=== PATIENT | female | born 1975 | race African-American/Black ===

== ENCOUNTER 2019-08-06 20:08 | Inpatient (IN) | payer MEDICARE, MEDICAID ==
[~2019-08-06] VITALS: Ht 160 cm; Wt 58.8 kg
[2019-08-06 21:08] LABS: BASOPHILS % 0.9 % (0.0-2.0); HEMATOCRIT. 27.3 % (36.0-48.0); HEMOGLOBIN. 8.7 g/dL (12.0-16.0); LYMPHOCYTES % 7.6 % (20.0-50.0); MEAN CORPUSCULAR HEMOGLOBIN 32.9 pg (28.0-32.0); MEAN CORPUSCULAR VOLUME 102.8 fL (81.0-99.0); MEAN PLATELET VOLUME 8.9 fl (7.4-10.4); MONOCYTES % 8.7 % (2.0-8.0); NEUTROPHILS % 82.8 % (40.0-76.0); PLATELET 281 x1000/uL (130-400); RED BLOOD CELL COUNT 2.66 mill/uL (4.2-5.4); RED CELL DISTRIBUTION WIDTH 19.6 % (11.6-14.6)
[2019-08-06 21:12] LABS: CHLORIDE 99 mEq/L (98-107)
[2019-08-06 21:15] LABS: HCG SCREEN NEGATIVE
[2019-08-06] MEDS ORDERED: SODIUM BICARBONATE 8.4% 1 MEQ/ML 50ML SYR IV ONE (21:45)
[2019-08-06] MEDS ORDERED: DEXTROSE 50% WATER 50ML SYRINGE IV ONE (21:45)
[2019-08-06] MEDS ORDERED: CALCIUM GLUCONATE 1,000 MG in DEXT 5% WATER 100 ML IV ONE (21:45)
[2019-08-06] MEDS ORDERED: INSULIN REGULAR (HUMULIN R) 300UNITS/3ML IV ONE (21:45)
[2019-08-06] MEDS ORDERED: ALBUTEROL (0.083%) 2.5MG/3ML NEB HHN ONE (21:45)
[2019-08-07] VITALS (16 sets, daily range): BP systolic 105–134; BP diastolic 54–91
[2019-08-07] MEDS ORDERED: DEXTROSE 50% WATER 50ML SYRINGE IV ONE ×2 (00:09→00:15)
[2019-08-07] MEDS ORDERED: DEXTROSE 50% WATER 50ML SYRINGE IV PRN (06:15)
[2019-08-07] MEDS ORDERED: ENOXAPARIN 40MG/0.4ML SYR SUBCUT SCH (06:15)
[2019-08-07] MEDS ORDERED: IPRATROPIUM/ALBUTEROL 0.5-3(2.5)MG/3ML NEB HHN PRN (06:15)
[2019-08-07] MEDS ORDERED: LORAZEPAM 2MG/ML CPJ IV PRN (06:15)
[2019-08-07] MEDS ORDERED: GUAIFENESIN 200MG/10ML SUGAR FREE UDC PO PRN (06:15)
[2019-08-07] MEDS ORDERED: HYDROCODONE/ACETAMINOPHEN 10/325MG TABLET PO PRN (06:15)
[2019-08-07] MEDS ORDERED: MAGNESIUM/ALUMINUM HYDROXIDE/SIMETHICONE 30ML UDC PO PRN (06:15)
[2019-08-07] MEDS ORDERED: DIPHENHYDRAMINE 50MG/ML VIAL IV PRN (06:15)
[2019-08-07] MEDS ORDERED: ACETAMINOPHEN 325MG TABLET PO PRN (06:15)
[2019-08-07] MEDS ORDERED: HYDRALAZINE 20MG/ML VIAL IV PRN (06:15)
[2019-08-07] MEDS ORDERED: DOCUSATE SODIUM 100MG CAPSULE PO PRN (06:15)
[2019-08-07] MEDS ORDERED: CLONIDINE 0.1MG TABLET PO PRN (06:15)
[2019-08-07] MEDS ORDERED: DEXTROSE 50% WATER 50ML SYRINGE IV SCH (08:00)
[2019-08-07] MEDS ORDERED: INSULIN REGULAR (HUMULIN R) UD 100 UNITS/ML SYR IV SCH (08:00)
[2019-08-07] MEDS ORDERED: ENOXAPARIN 30MG/0.3ML SYR SUBCUT SCH (09:00)
[2019-08-07 10:19] LABS: CHLORIDE 97 mEq/L (98-107)
[2019-08-07 12:49] LABS: INR 3.9; PROTHROMBIN TIME 38.4 sec (9.6-11.0)
[2019-08-07 12:54] LABS: T4 FREE 0.88 ng/dL (0.76-1.46)
[2019-08-07] MEDS: SODIUM CHLORIDE 0.9% INJ 3ML FLUSH IVF SCH ×2 (14:00→22:11)
[2019-08-07 14:46] LABS: CREATINE KINASE 18 IU/L (26-192)
[2019-08-07 14:47] LABS: CREATINE KINASE MB FRACTION < 1.0 ng/mL (0.5-3.6)
[2019-08-07] MEDS: DILTIAZEM HCL 125 MG in DEXT 5% WATER 100 ML IV PRN (17:02)
[2019-08-08] VITALS (13 sets, daily range): BP systolic 73–137; BP diastolic 19–94
[2019-08-08 00:45] LABS: CREATINE KINASE MB FRACTION 2.9 ng/mL (0.5-3.6)
[2019-08-08] MEDS: SODIUM CHLORIDE 0.9% INJ 3ML FLUSH IVF SCH ×3 (05:34→22:11)
[2019-08-08 06:44] LABS: PROTHROMBIN TIME 56.2 sec (9.6-11.0)
[2019-08-08 06:55] LABS: EOSINOPHILS % 0.2 % (0.0-5.0); HEMATOCRIT. 26.7 % (36.0-48.0); HEMOGLOBIN. 8.6 g/dL (12.0-16.0); LYMPHOCYTES % 10.7 % (20.0-50.0); MEAN CORPUSCULAR HEMOGLOBIN 32.9 pg (28.0-32.0); MEAN CORPUSCULAR VOLUME 102.5 fL (81.0-99.0); MEAN PLATELET VOLUME 9.2 fl (7.4-10.4); MONOCYTES % 10.7 % (2.0-8.0); NEUTROPHILS % 77.4 % (40.0-76.0); PLATELET 277 x1000/uL (130-400); RED BLOOD CELL COUNT 2.61 mill/uL (4.2-5.4); RED CELL DISTRIBUTION WIDTH 20.2 % (11.6-14.6)
[2019-08-08 06:57] LABS: INR 5.9
[2019-08-08 09:41] LABS: BASOPHILS % 0.3 % (0.0-2.0); EOSINOPHILS % 0.2 % (0.0-5.0); HEMATOCRIT. 28.3 % (36.0-48.0); HEMOGLOBIN. 9.1 g/dL (12.0-16.0); LYMPHOCYTES % 9.3 % (20.0-50.0); MEAN CORPUSCULAR HEMOGLOBIN 32.4 pg (28.0-32.0); MEAN CORPUSCULAR VOLUME 100.5 fL (81.0-99.0); MEAN PLATELET VOLUME 8.7 fl (7.4-10.4); MONOCYTES % 10.4 % (2.0-8.0); NEUTROPHILS % 79.8 % (40.0-76.0); PLATELET 293 x1000/uL (130-400); RED BLOOD CELL COUNT 2.81 mill/uL (4.2-5.4); RED CELL DISTRIBUTION WIDTH 19.6 % (11.6-14.6)
[2019-08-08] MEDS ORDERED: VANCOMYCIN 1 G PREMIX 200 ML IV SCH (20:00)
[2019-08-08] MEDS ORDERED: EPOETIN ALFA 10000UNITS/ML VIAL SUBCUT SCH (21:00)
[2019-08-08] MEDS ORDERED: GENTAMICIN 120MG PREMIX 100 ML IV NR (21:00)
[2019-08-08] MEDS: METOPROLOL TARTRATE 50MG TABLET PO SCH (21:11)
[2019-08-09] VITALS (12 sets, daily range): BP systolic 100–132; BP diastolic 58–99
[2019-08-09] MEDS ORDERED: GENTAMICIN 120MG PREMIX 100 ML IV SCH (05:00)
[2019-08-09] MEDS: SODIUM CHLORIDE 0.9% INJ 3ML FLUSH IVF SCH (06:19)
[2019-08-09 07:42] LABS: INR 3.7; PROTHROMBIN TIME 36.3 sec (9.6-11.0)
[2019-08-09 07:56] LABS: BASOPHILS % 1.1 % (0.0-2.0); EOSINOPHILS % 0.8 % (0.0-5.0); HEMATOCRIT. 27.1 % (36.0-48.0); HEMOGLOBIN. 8.9 g/dL (12.0-16.0); LYMPHOCYTES % 10.8 % (20.0-50.0); MEAN CORPUSCULAR HEMOGLOBIN 33.2 pg (28.0-32.0); MEAN CORPUSCULAR VOLUME 101.6 fL (81.0-99.0); MEAN PLATELET VOLUME 9.1 fl (7.4-10.4); MONOCYTES % 10.5 % (2.0-8.0); NEUTROPHILS % 76.8 % (40.0-76.0); PLATELET 282 x1000/uL (130-400); RED BLOOD CELL COUNT 2.67 mill/uL (4.2-5.4); RED CELL DISTRIBUTION WIDTH 19.4 % (11.6-14.6)
[2019-08-09] MEDS: METOPROLOL TARTRATE 50MG TABLET PO SCH ×2 (10:11→20:38)
[2019-08-09] MEDS ORDERED: DIGOXIN 500MCG/2ML AMP IV NR (11:30)
[2019-08-09] MEDS ORDERED: CEFTRIAXONE 2 G PREMIX 50 ML IV SCH (14:45)
[2019-08-09] MEDS: CEFTRIAXONE 2 G in DEXTROSE 5% WATER 50 ML IV SCH (16:11)
[2019-08-09] MEDS: MORPHINE SULFATE 2 MG/ML CPJ (NOT FOR IM USE) IV PRN (16:13)
[2019-08-09 17:25] LABS: HEPATITIS B SURFACE ANTIGEN NEGATIVE
[2019-08-09 17:54] LABS: HEPATITIS A AB IGM NEGATIVE (NEGATIVE)
[2019-08-09] MEDS ORDERED: WARFARIN SODIUM 2MG TABLET PO SCH (18:00)
[2019-08-10] VITALS (12 sets, daily range): BP systolic 118–138; BP diastolic 55–86
[2019-08-10 07:18] LABS: INR 3.5; PROTHROMBIN TIME 34.2 sec (9.6-11.0)
[2019-08-10 07:23] LABS: BASOPHILS % 1.1 % (0.0-2.0); EOSINOPHILS % 0.6 % (0.0-5.0); HEMATOCRIT. 30.2 % (36.0-48.0); HEMOGLOBIN. 9.8 g/dL (12.0-16.0); LYMPHOCYTES % 11.3 % (20.0-50.0); MEAN CORPUSCULAR HEMOGLOBIN 33.2 pg (28.0-32.0); MEAN CORPUSCULAR VOLUME 102.5 fL (81.0-99.0); MEAN PLATELET VOLUME 9.3 fl (7.4-10.4); MONOCYTES % 11.3 % (2.0-8.0); NEUTROPHILS % 75.7 % (40.0-76.0); PLATELET 323 x1000/uL (130-400); RED BLOOD CELL COUNT 2.94 mill/uL (4.2-5.4); RED CELL DISTRIBUTION WIDTH 20.3 % (11.6-14.6)
[2019-08-10] MEDS ORDERED: DILTIAZEM HCL 125 MG in DEXT 5% WATER 100 ML IV ONE (09:00)
[2019-08-10] MEDS: METOPROLOL TARTRATE 50MG TABLET PO SCH ×2 (09:00→20:26)
[2019-08-10] MEDS: DILTIAZEM HCL 125 MG in DEXT 5% WATER 100 ML IV PRN (14:53)
[2019-08-10] MEDS ORDERED: VANCOMYCIN 750 MG PREMIX 150 ML IV NR (16:00)
[2019-08-10] MEDS: CEFTRIAXONE 2 G in DEXTROSE 5% WATER 50 ML IV SCH (16:14)
[2019-08-10] MEDS: ALLOPURINOL 300 MG TABLET PO SCH (20:11)
[2019-08-10] MEDS ORDERED: ASCORBIC ACID 500 MG TABLET PO SCH (21:00)
[2019-08-10] MEDS ORDERED: DOCUSATE SODIUM 100MG CAPSULE PO SCH (21:00)
[2019-08-10] MEDS ORDERED: CHLORHEXIDINE GLUCONATE 4% EXTERNAL USE TOP SCH (21:00)
[2019-08-10] MEDS: EPOETIN ALFA 10000UNITS/ML VIAL SUBCUT SCH (21:34)
[2019-08-10] MEDS: MORPHINE SULFATE 2 MG/ML CPJ (NOT FOR IM USE) IV PRN (23:25)
[2019-08-11] VITALS (12 sets, daily range): BP systolic 95–136; BP diastolic 37–89
[2019-08-11] MEDS: CHLORHEXIDINE GLUCONATE 4% EXTERNAL USE TOP SCH ×2 (05:00→08:29)
[2019-08-11] MEDS: ALLOPURINOL 300 MG TABLET PO SCH (05:30)
[2019-08-11 07:19] LABS: BASOPHILS % 1.1 % (0.0-2.0); EOSINOPHILS % 2.7 % (0.0-5.0); HEMATOCRIT. 32.1 % (36.0-48.0); HEMOGLOBIN. 10.5 g/dL (12.0-16.0); LYMPHOCYTES % 11.9 % (20.0-50.0); MEAN CORPUSCULAR VOLUME 104.4 fL (81.0-99.0); MEAN PLATELET VOLUME 8.9 fl (7.4-10.4); MONOCYTES % 13.7 % (2.0-8.0); NEUTROPHILS % 70.6 % (40.0-76.0); PLATELET 324 x1000/uL (130-400); RED BLOOD CELL COUNT 3.08 mill/uL (4.2-5.4); RED CELL DISTRIBUTION WIDTH 20.2 % (11.6-14.6)
[2019-08-11 07:28] LABS: PROTHROMBIN TIME 20.3 sec (9.6-11.0)
[2019-08-11 08:08] LABS: HIV SCREEN 4G Non Reactive (Non Reactive)
[2019-08-11] MEDS: METOPROLOL TARTRATE 50MG TABLET PO SCH ×2 (09:00→21:00)
[2019-08-11] MEDS: DILTIAZEM HCL 125 MG in DEXT 5% WATER 100 ML IV PRN (13:02)
[2019-08-11] MEDS: CEFTRIAXONE 2 G in DEXTROSE 5% WATER 50 ML IV SCH (16:13)
[2019-08-12] VITALS (12 sets, daily range): BP systolic 96–126; BP diastolic 27–70
[2019-08-12 06:10] LABS: BASOPHILS % 0.9 % (0.0-2.0); EOSINOPHILS % 4.1 % (0.0-5.0); HEMATOCRIT. 32.1 % (36.0-48.0); HEMOGLOBIN. 10.3 g/dL (12.0-16.0); LYMPHOCYTES % 7.1 % (20.0-50.0); MEAN CORPUSCULAR HEMOGLOBIN 33.4 pg (28.0-32.0); MEAN CORPUSCULAR VOLUME 103.9 fL (81.0-99.0); MEAN PLATELET VOLUME 8.7 fl (7.4-10.4); NEUTROPHILS % 75.9 % (40.0-76.0); PLATELET 290 x1000/uL (130-400); RED BLOOD CELL COUNT 3.09 mill/uL (4.2-5.4); RED CELL DISTRIBUTION WIDTH 20.2 % (11.6-14.6)
[2019-08-12] MEDS: METOPROLOL TARTRATE 50MG TABLET PO SCH ×2 (09:00→21:00)
[2019-08-12] MEDS: DILTIAZEM HCL 125 MG in DEXT 5% WATER 100 ML IV PRN (15:10)
[2019-08-12] MEDS: CEFTRIAXONE 2 G in DEXTROSE 5% WATER 50 ML IV SCH (15:10)
[2019-08-12] MEDS ORDERED: IBUPROFEN 200MG TABLET PO PRN (23:15)
[2019-08-12] MEDS: IBUPROFEN 600MG TABLET PO PRN (23:35)
[2019-08-13] VITALS (18 sets, daily range): BP systolic 93–132; BP diastolic 17–68
[2019-08-13 05:51] LABS: BASOPHILS % 0.9 % (0.0-2.0); EOSINOPHILS % 5.9 % (0.0-5.0); HEMATOCRIT. 28.9 % (36.0-48.0); HEMOGLOBIN. 9.1 g/dL (12.0-16.0); INR 1.3; LYMPHOCYTES % 14.2 % (20.0-50.0); MEAN CORPUSCULAR HEMOGLOBIN 34.2 pg (28.0-32.0); MEAN CORPUSCULAR VOLUME 108.5 fL (81.0-99.0); MEAN PLATELET VOLUME 8.6 fl (7.4-10.4); MONOCYTES % 14.6 % (2.0-8.0); NEUTROPHILS % 64.4 % (40.0-76.0); PLATELET 259 x1000/uL (130-400); PROTHROMBIN TIME 13.3 sec (9.6-11.0); RED BLOOD CELL COUNT 2.67 mill/uL (4.2-5.4); RED CELL DISTRIBUTION WIDTH 20.9 % (11.6-14.6)
[2019-08-13] MEDS: METOPROLOL TARTRATE 50MG TABLET PO SCH ×2 (09:00→21:00)
[2019-08-13] MEDS ORDERED: MAGNESIUM 2 G PREMIX 50 ML IV NR (10:00)
[2019-08-13] MEDS ORDERED: IOHEXOL-350 100 ML BOTTLE ONE (10:24)
[2019-08-13] MEDS: HEPARIN 5000 UNITS/ML VIAL IV SCH ×2 (13:36→21:53)
[2019-08-13 15:58] LABS: HEMATOCRIT 37.6 % (36.0-48.0); HEMOGLOBIN 12.1 g/dL (12.0-16.0)
[2019-08-13 16:05] LABS: INR 1.2; PROTHROMBIN TIME 12.5 sec (9.6-11.0)
[2019-08-13] MEDS: CEFTRIAXONE 2 G in DEXTROSE 5% WATER 50 ML IV SCH (16:49)
[2019-08-13] MEDS: IBUPROFEN 600MG TABLET PO PRN (21:46)
[2019-08-13] MEDS: EPOETIN ALFA 10000UNITS/ML VIAL SUBCUT SCH (21:47)
[2019-08-13] MEDS ORDERED: CHLORHEXIDINE GLUCONATE 4% EXTERNAL USE TOP NR (22:00)
[2019-08-14] VITALS (59 sets, daily range): BP systolic 0–140; BP diastolic 0–72
[2019-08-14] MEDS ORDERED: CHLORHEXIDINE GLUCONATE 4% EXTERNAL USE TOP NR (05:00)
[2019-08-14] MEDS ORDERED: BACITRACIN 15GM TUBE TOP ONE (05:46)
[2019-08-14] MEDS ORDERED: THROMBIN (BOVINE) 5000 UNITS/VIAL TOP ONE ×2 (05:47→08:14)
[2019-08-14] MEDS ORDERED: BACITRACIN 50,000 UNITS/VIAL ONE (05:47)
[2019-08-14] MEDS ORDERED: SEVOFLURANE 250 ML LIQUID INH ONE (05:48)
[2019-08-14] MEDS ORDERED: NITROGLYCERIN 50MG PREMIX 250 ML IV ONE (05:48)
[2019-08-14] MEDS ORDERED: HEPARIN 1000 UNITS/ML 10ML ONE ×3 (05:54→06:54)
[2019-08-14] MEDS ORDERED: NICARDIPINE 40MG/200ML PREMIX 200 ML IV PRN (06:00)
[2019-08-14] MEDS ORDERED: DEL NIDO ELECTROLYTE-S(PH 7.4) 1,000 ML IV PRN ×2 (06:00)
[2019-08-14] MEDS ORDERED: DOBUTAMINE 250MG PREMIX 250 ML IV PRN (06:00)
[2019-08-14] MEDS ORDERED: CEFAZOLIN 2,000 MG in DEXT 5% WATER 100 ML IV PRN (06:00)
[2019-08-14] MEDS ORDERED: AMINOCAPROIC ACID 10,000 MG in SODIUM CHLORIDE 0.9% 460 ML IV PRN (06:00)
[2019-08-14] MEDS ORDERED: NOREPINEPHRINE 4 MG in DEXT 5% WATER 246 ML IV PRN (06:00)
[2019-08-14] MEDS ORDERED: INSULIN REGULAR (DRIP) 100 UNITS in SODIUM CHLORIDE 0.9% 99 ML IV PRN (06:00)
[2019-08-14] MEDS ORDERED: PHENYLEPHRINE 10 MG in DEXT 5% WATER 249 ML IV PRN (06:00)
[2019-08-14] MEDS ORDERED: EPINEPHRINE 4 MG in DEXT 5% WATER 246 ML IV PRN (06:00)
[2019-08-14] MEDS ORDERED: DOPAMINE 400MG/250ML PREMIX 250 ML IV ONE (06:08)
[2019-08-14 06:26] LABS: BASOPHILS % 1.3 % (0.0-2.0); EOSINOPHILS % 5.1 % (0.0-5.0); HEMATOCRIT. 35.7 % (36.0-48.0); HEMOGLOBIN. 11.7 g/dL (12.0-16.0); LYMPHOCYTES % 12.3 % (20.0-50.0); MEAN CORPUSCULAR HEMOGLOBIN 33.6 pg (28.0-32.0); MEAN CORPUSCULAR VOLUME 102.8 fL (81.0-99.0); MEAN PLATELET VOLUME 8.8 fl (7.4-10.4); MONOCYTES % 10.7 % (2.0-8.0); NEUTROPHILS % 70.6 % (40.0-76.0); PLATELET 243 x1000/uL (130-400); RED BLOOD CELL COUNT 3.48 mill/uL (4.2-5.4); RED CELL DISTRIBUTION WIDTH 20.3 % (11.6-14.6)
[2019-08-14] MEDS ORDERED: ETOMIDATE 2MG/ML 10ML VIAL IV ONE (06:44)
[2019-08-14] MEDS ORDERED: FENTANYL CITRATE/PF 50MCG/ML 5ML VIAL ONE (06:44)
[2019-08-14] MEDS ORDERED: MIDAZOLAM HCL 2 MG/2 ML VIAL ONE (06:44)
[2019-08-14] MEDS ORDERED: ROCURONIUM BROMIDE 10MG/ML VIAL 5ML IV ONE ×2 (06:44→09:35)
[2019-08-14] MEDS ORDERED: PROPOFOL 10MG/ML 100ML 100 ML IV ONE (06:45)
[2019-08-14] MEDS ORDERED: PHENYLEPHRINE HCL 10 MG/ML 1ML (IV VIAL) IV ONE ×2 (06:49→06:52)
[2019-08-14] MEDS ORDERED: AMINOCAPROIC ACID 250 MG/ML 20ML VIAL ONE (06:52)
[2019-08-14] MEDS ORDERED: MAGNESIUM SULFATE 5GM/10ML VIAL IV ONE (06:52)
[2019-08-14] MEDS ORDERED: ALBUMIN HUMAN 25GM/100ML (25%) IV ONE (06:52)
[2019-08-14] MEDS ORDERED: MANNITOL 20% 500 ML IV ONE (06:52)
[2019-08-14] MEDS ORDERED: CALCIUM CHLORIDE 1GM/10ML SYR IV ONE (06:52)
[2019-08-14] MEDS ORDERED: HEPARIN 10,000 UNITS/ML VIAL ONE (06:53)
[2019-08-14] MEDS ORDERED: SODIUM BICARBONATE 8.4% 1 MEQ/ML 50ML SYR IV ONE ×2 (06:53→06:54)
[2019-08-14] MEDS ORDERED: VANCOMYCIN HCL 500 MG/VIAL ONE (07:44)
[2019-08-14] MEDS ORDERED: METOPROLOL TARTRATE 5MG/5ML VIAL IV ONE (08:03)
[2019-08-14] MEDS ORDERED: EPINEPHRINE 0.1MG/ML (1:10,000) 10ML SYR ONE (08:35)
[2019-08-14 10:08] LABS: B HENSELAE IGG Negative titer (Neg:<1:320); B HENSELAE IGM Negative titer (Neg:<1:100); B QUINTANA IGG Negative titer (Neg:<1:320); B QUINTANA IGM Negative titer (Neg:<1:100)
[2019-08-14] MEDS ORDERED: DEXMEDETOMIDINE 400 MCG/100 ML 100 ML IV SCH (10:45)
[2019-08-14] MEDS ORDERED: PROTAMINE SULFATE 10MG/ML VIAL 25ML IV ONE (10:46)
[2019-08-14] MEDS ORDERED: DESMOPRESSIN ACETATE 4MCG/ML AMP ONE (11:13)
[2019-08-14] MEDS ORDERED: NEOSTIGMINE METHYLSULFATE 1MG/ML 10 ML VIAL ONE (11:21)
[2019-08-14] MEDS ORDERED: DESMOPRESSIN ACETATE 18 MCG in SODIUM CHLORIDE 0.9% 50 ML IV SCH (11:30)
[2019-08-14] MEDS ORDERED: ONDANSETRON HCL 4MG/2ML INJ ONE (11:40)
[2019-08-14] MEDS ORDERED: VANCOMYCIN 750 MG PREMIX 150 ML IV NR (12:00)
[2019-08-14] MEDS ORDERED: KETOROLAC 30MG/ML VIAL ONE (12:09)
[2019-08-14] MEDS ORDERED: KETOROLAC 15MG/ML VIAL IV NR ×2 (12:30)
[2019-08-14] MEDS ORDERED: SODIUM CHLORIDE 0.9% 500 ML IV PRN (12:31)
[2019-08-14 12:34] LABS: BG BASE EXCESS -1.7 mmol/L (-2.0-2.0); BG CARBOXYHEMOGLOBIN 1.4 % (0.5-1.5); BG CPAP (cmH2O) 0 cm(H2O); BG DEOXYHEMOGLOBIN 4.2 % (0.0-5.0); BG HCO3 ACT 22.7 mmol/L (22.0-26.0); BG METHEMOGLOBIN 0.1 % (0.0-1.5); BG OXYGEN SATURATION 95.7 % (92.0-98.5); BG OXYHEMOGLOBIN 94.3 % (94.0-97.0); BG PCO2 37.1 mmHg (35.0-45.0); BG PH 7.404 (7.350-7.450); BG PO2 93.2 mmHg (75.0-100.0); BG PRESSURE SUPPORT 14; BG SAMPLE SITE A-LINE; BG TOTAL HEMOGLOBIN 11.2 g/dL (12.0-18.0); BG VENT MODE VENT - CPAP
[2019-08-14] MEDS ORDERED: MAGNESIUM 1 G PREMIX 100 ML IV PRN (12:45)
[2019-08-14] MEDS ORDERED: MAGNESIUM 2 G PREMIX 50 ML IV PRN (12:45)
[2019-08-14] MEDS ORDERED: MAGNESIUM SULFATE 3 GM in DEXT 5% WATER 100 ML IV PRN (13:00)
[2019-08-14 13:09] LABS: HEMATOCRIT. 27.2 % (36.0-48.0); MEAN CORPUSCULAR HEMOGLOBIN 33.9 pg (28.0-32.0); MEAN CORPUSCULAR VOLUME 101.7 fL (81.0-99.0); MEAN PLATELET VOLUME 7.6 fl (7.4-10.4); PLATELET 127 x1000/uL (130-400); RED BLOOD CELL COUNT 2.67 mill/uL (4.2-5.4); RED CELL DISTRIBUTION WIDTH 20.6 % (11.6-14.6)
[2019-08-14 13:11] LABS: BRUCELLA AB IGG EIA Negative (Negative); BRUCELLA AB IGM EIA Negative (Negative)
[2019-08-14 13:11] LABS: BG BASE EXCESS 1.1 mmol/L (-2.0-2.0); BG DEOXYHEMOGLOBIN 3.2 % (0.0-5.0); BG HCO3 ACT 26.9 mmol/L (22.0-26.0); BG METHEMOGLOBIN 0.3 % (0.0-1.5); BG OXYGEN SATURATION 96.8 % (92.0-98.5); BG OXYHEMOGLOBIN 95.5 % (94.0-97.0); BG PCO2 48.7 mmHg (35.0-45.0); BG SAMPLE SITE A-LINE; BG TOTAL HEMOGLOBIN 9.8 g/dL (12.0-18.0); BG VENT MODE NASAL CANNULA
[2019-08-14] MEDS: DOPAMINE 400MG/250ML PREMIX 250 ML IV SCH (13:14)
[2019-08-14] MEDS ORDERED: EPINEPHRINE 1 MG in DEXT 5% WATER 249 ML IV SCH (13:30)
[2019-08-14 13:34] LABS: PLATELET ESTIMATE SLIGHTLY DECREASED
[2019-08-14] MEDS ORDERED: ALBUMIN HUMAN 25GM/100ML (25%) IV SCH (13:45)
[2019-08-14 13:51] LABS: INR 1.3; PARTIAL THROMBOPLASTIN TIME 31.2 sec (23.4-31.0); PROTHROMBIN TIME 13.2 sec (9.6-11.0)
[2019-08-14] MEDS: KETOROLAC 15MG/ML VIAL IV PRN ×2 (13:51→19:56)
[2019-08-14] MEDS ORDERED: PROTAMINE SULFATE 10MG/ML VIAL 5ML IV NR (15:15)
[2019-08-14] MEDS: IPRATROPIUM/ALBUTEROL 0.5-3(2.5)MG/3ML NEB HHN SCH ×3 (16:10→23:57)
[2019-08-14] MEDS ORDERED: LIDOCAINE HCL 1% 20ML VIAL (Pyxis) INJ INFIL NR (16:49)
[2019-08-14] MEDS ORDERED: LIDOCAINE HCL/PF 1% 10 MG/ML 5ML VIAL ONE (17:01)
[2019-08-14] MEDS: CEFTRIAXONE 2 G in DEXTROSE 5% WATER 50 ML IV SCH (17:27)
[2019-08-14] MEDS: DOCUSATE SODIUM 100MG CAPSULE PO SCH (17:28)
[2019-08-14] MEDS ORDERED: LIDOCAINE HCL/PF 1% 2ML VIAL INFIL NR (17:28)
[2019-08-14] MEDS ORDERED: DEXT 5%/0.45% NACL 1000ML 1,000 ML IV SCH (17:30)
[2019-08-14] MEDS ORDERED: LIDOCAINE HCL/PF 1% 10 MG/ML 5ML VIAL IJ NR (18:04)
[2019-08-14 18:35] LABS: HEMATOCRIT. 26.6 % (36.0-48.0); HEMOGLOBIN. 8.6 g/dL (12.0-16.0); MEAN CORPUSCULAR HEMOGLOBIN 32.4 pg (28.0-32.0); MEAN PLATELET VOLUME 8.9 fl (7.4-10.4); PLATELET 145 x1000/uL (130-400); RED BLOOD CELL COUNT 2.66 mill/uL (4.2-5.4); RED CELL DISTRIBUTION WIDTH 21.1 % (11.6-14.6)
[2019-08-14 18:43] LABS: CHLORIDE 101 mEq/L (98-107)
[2019-08-14 18:49] LABS: PHOSPHORUS 5.7 mg/dL (2.5-4.9)
[2019-08-14 19:53] LABS: PLATELET ESTIMATE NORMAL
[2019-08-14] MEDS ORDERED: WARFARIN SODIUM 1MG TABLET PO NR (21:00)
[2019-08-14] MEDS: METOPROLOL TARTRATE 50MG TABLET PO SCH (21:00)
[2019-08-14] MEDS: MORPHINE SULFATE 2 MG/ML CPJ (NOT FOR IM USE) IV PRN (22:06)
[2019-08-15] VITALS (106 sets, daily range): BP systolic 0–147; BP diastolic 0–74
[2019-08-15] MEDS: MORPHINE SULFATE 2 MG/ML CPJ (NOT FOR IM USE) IV PRN ×2 (01:45→06:26)
[2019-08-15] MEDS: IPRATROPIUM/ALBUTEROL 0.5-3(2.5)MG/3ML NEB HHN SCH ×6 (04:11→19:48)
[2019-08-15] MEDS: KETOROLAC 15MG/ML VIAL IV PRN ×2 (04:47→10:51)
[2019-08-15 06:20] LABS: HEMATOCRIT. 27.2 % (36.0-48.0); HEMOGLOBIN. 9.4 g/dL (12.0-16.0); MEAN CORPUSCULAR VOLUME 97.8 fL (81.0-99.0); MEAN PLATELET VOLUME 9.1 fl (7.4-10.4); PLATELET 105 x1000/uL (130-400); RED BLOOD CELL COUNT 2.78 mill/uL (4.2-5.4); RED CELL DISTRIBUTION WIDTH 20.1 % (11.6-14.6)
[2019-08-15 06:33] LABS: INR 1.2; PROTHROMBIN TIME 12.2 sec (9.6-11.0)
[2019-08-15 08:26] LABS: BG BASE EXCESS -1.3 mmol/L (-2.0-2.0); BG DEOXYHEMOGLOBIN 9.7 % (0.0-5.0); BG FRACTION INSPIRED OXYGEN 36; BG HCO3 ACT 23.7 mmol/L (22.0-26.0); BG METHEMOGLOBIN 0.2 % (0.0-1.5); BG OXYHEMOGLOBIN 87.1 % (94.0-97.0); BG PCO2 40.7 mmHg (35.0-45.0); BG PH 7.383 (7.350-7.450); BG PO2 62.9 mmHg (75.0-100.0); BG SAMPLE SITE A-LINE; BG TOTAL HEMOGLOBIN 9.7 g/dL (12.0-18.0); BG VENT MODE NASAL CANNULA
[2019-08-15] MEDS: METOPROLOL TARTRATE 50MG TABLET PO SCH (08:36)
[2019-08-15] MEDS: DOCUSATE SODIUM 100MG CAPSULE PO SCH ×2 (08:36→17:44)
[2019-08-15 08:44] LABS: PLATELET ESTIMATE DECREASED
[2019-08-15] MEDS ORDERED: INSULIN REGULAR (DRIP) 100 UNITS in SODIUM CHLORIDE 0.9% 99 ML IV PRN (09:00)
[2019-08-15] MEDS: BLOOD SUGAR DIAGNOSTIC STRIP TEST SCH ×7 (09:00→21:13)
[2019-08-15] MEDS ORDERED: DEXTROSE 50% WATER 50ML SYRINGE IV PRN ×3 (09:15→15:15)
[2019-08-15 12:26] LABS: BASOPHILS % 1.1 % (0.0-2.0); EOSINOPHILS % 3.4 % (0.0-5.0); HEMATOCRIT. 26.5 % (36.0-48.0); HEMOGLOBIN. 8.9 g/dL (12.0-16.0); LYMPHOCYTES % 7.4 % (20.0-50.0); MEAN CORPUSCULAR HEMOGLOBIN 32.9 pg (28.0-32.0); MEAN CORPUSCULAR VOLUME 98.3 fL (81.0-99.0); MEAN PLATELET VOLUME 8.3 fl (7.4-10.4); MONOCYTES % 11.1 % (2.0-8.0); PLATELET 91 x1000/uL (130-400); RED BLOOD CELL COUNT 2.69 mill/uL (4.2-5.4); RED CELL DISTRIBUTION WIDTH 19.5 % (11.6-14.6)
[2019-08-15] MEDS: ONDANSETRON HCL 4MG/2ML INJ IV PRN (12:59)
[2019-08-15] MEDS: OXYCODONE HCL/ACETAMINOPHEN 5/325MG TABLET PO PRN ×3 (13:23→23:09)
[2019-08-15] MEDS: DOPAMINE 400MG/250ML PREMIX 250 ML IV SCH (15:18)
[2019-08-15] MEDS: CEFTRIAXONE 2 G in DEXTROSE 5% WATER 50 ML IV SCH (17:11)
[2019-08-15] MEDS: INSULIN LISPRO 100 UNITS/ML SUBCUT SCH ×2 (17:44→21:00)
[2019-08-15] MEDS ORDERED: WARFARIN SODIUM 1MG TABLET PO NR (21:00)
[2019-08-15] MEDS: EPOETIN ALFA 10000UNITS/ML VIAL SUBCUT SCH (21:27)
[2019-08-16] VITALS (50 sets, daily range): BP systolic 82–131; BP diastolic 42–87
[2019-08-16] MEDS: IPRATROPIUM/ALBUTEROL 0.5-3(2.5)MG/3ML NEB HHN SCH ×6 (04:11→20:11)
[2019-08-16 06:27] LABS: HEMATOCRIT. 30.7 % (36.0-48.0); HEMOGLOBIN. 10.3 g/dL (12.0-16.0); MEAN CORPUSCULAR HEMOGLOBIN 32.3 pg (28.0-32.0); MEAN CORPUSCULAR VOLUME 96.6 fL (81.0-99.0); MEAN PLATELET VOLUME 9.6 fl (7.4-10.4); PLATELET 78 x1000/uL (130-400); RED BLOOD CELL COUNT 3.18 mill/uL (4.2-5.4); RED CELL DISTRIBUTION WIDTH 18.2 % (11.6-14.6)
[2019-08-16 07:21] LABS: INR 1.2; PARTIAL THROMBOPLASTIN TIME 38.7 sec (23.4-31.0)
[2019-08-16] MEDS: INSULIN LISPRO 100 UNITS/ML SUBCUT SCH ×3 (07:47→21:00)
[2019-08-16] MEDS: BLOOD SUGAR DIAGNOSTIC STRIP TEST SCH ×4 (07:47→21:26)
[2019-08-16] MEDS: DOCUSATE SODIUM 100MG CAPSULE PO SCH ×2 (08:04→18:11)
[2019-08-16] MEDS: OXYCODONE HCL/ACETAMINOPHEN 5/325MG TABLET PO PRN ×3 (08:04→18:08)
[2019-08-16 08:18] LABS: NUCLEATED RED BLOOD CELLS 1 /100 WBC; PLATELET ESTIMATE DECREASED
[2019-08-16] MEDS ORDERED: CALCIUM CHLORIDE 3,000 MG in DEXT 5% WATER 250 ML IV NR (08:30)
[2019-08-16] MEDS: ASPIRIN 81MG TABLET PO SCH (12:36)
[2019-08-16] MEDS: FAMOTIDINE 20MG TABLET PO SCH (12:36)
[2019-08-16] MEDS: SODIUM CHLORIDE 0.9% INJ 3ML FLUSH IVF SCH ×2 (12:37→21:26)
[2019-08-16] MEDS: CEFTRIAXONE 2 G in DEXTROSE 5% WATER 50 ML IV SCH (14:59)
[2019-08-16] MEDS ORDERED: VANCOMYCIN 1 G PREMIX 200 ML IV SCH (16:00)
[2019-08-16] MEDS ORDERED: WARFARIN SODIUM 2MG TABLET PO NR (18:00)
[2019-08-16] MEDS: METOPROLOL TARTRATE 25MG TABLET PO SCH (21:25)
[2019-08-17] VITALS (14 sets, daily range): BP systolic 108–145; BP diastolic 52–76
[2019-08-17] MEDS: IPRATROPIUM/ALBUTEROL 0.5-3(2.5)MG/3ML NEB HHN SCH ×6 (00:02→20:25)
[2019-08-17] MEDS: OXYCODONE HCL/ACETAMINOPHEN 5/325MG TABLET PO PRN ×5 (00:09→20:06)
[2019-08-17] MEDS: SODIUM CHLORIDE 0.9% INJ 3ML FLUSH IVF SCH ×3 (05:51→22:27)
[2019-08-17] MEDS: BLOOD SUGAR DIAGNOSTIC STRIP TEST SCH ×4 (05:52→20:11)
[2019-08-17 06:35] LABS: BASOPHILS % 0.4 % (0.0-2.0); EOSINOPHILS % 4.4 % (0.0-5.0); HEMATOCRIT. 30.7 % (36.0-48.0); HEMOGLOBIN. 10.4 g/dL (12.0-16.0); INR 1.2; LYMPHOCYTES % 8.6 % (20.0-50.0); MEAN CORPUSCULAR HEMOGLOBIN 33.1 pg (28.0-32.0); MEAN CORPUSCULAR VOLUME 98.3 fL (81.0-99.0); MEAN PLATELET VOLUME 8.7 fl (7.4-10.4); MONOCYTES % 13.8 % (2.0-8.0); NEUTROPHILS % 72.8 % (40.0-76.0); PLATELET 65 x1000/uL (130-400); PROTHROMBIN TIME 11.9 sec (9.6-11.0); RED BLOOD CELL COUNT 3.13 mill/uL (4.2-5.4); RED CELL DISTRIBUTION WIDTH 18.3 % (11.6-14.6)
[2019-08-17] MEDS: INSULIN LISPRO 100 UNITS/ML SUBCUT SCH ×4 (07:20→20:11)
[2019-08-17] MEDS: ASPIRIN 81MG TABLET PO SCH (09:34)
[2019-08-17] MEDS: DOCUSATE SODIUM 100MG CAPSULE PO SCH ×2 (09:34→17:09)
[2019-08-17] MEDS: METOPROLOL TARTRATE 25MG TABLET PO SCH ×2 (09:35→22:27)
[2019-08-17] MEDS: FAMOTIDINE 20MG TABLET PO SCH (10:42)
[2019-08-17] MEDS: ONDANSETRON HCL 4MG/2ML INJ IV PRN (10:42)
[2019-08-17] MEDS ORDERED: CEFTRIAXONE 2 G PREMIX 50 ML IV SCH (16:00)
[2019-08-17] MEDS: CEFTRIAXONE 2 G in DEXTROSE 5% WATER 50 ML IV SCH (17:04)
[2019-08-17] MEDS ORDERED: WARFARIN SODIUM 2.5MG TABLET PO NR (19:30)
[2019-08-17] MEDS: BISACODYL 5MG TABLET PO PRN (20:15)
[2019-08-18] VITALS (17 sets, daily range): BP systolic 95–143; BP diastolic 43–77
[2019-08-18] MEDS: IPRATROPIUM/ALBUTEROL 0.5-3(2.5)MG/3ML NEB HHN SCH ×6 (00:06→21:23)
[2019-08-18] MEDS: OXYCODONE HCL/ACETAMINOPHEN 5/325MG TABLET PO PRN ×4 (01:45→21:17)
[2019-08-18] MEDS: SODIUM CHLORIDE 0.9% INJ 3ML FLUSH IVF SCH ×3 (05:47→22:40)
[2019-08-18] MEDS: BLOOD SUGAR DIAGNOSTIC STRIP TEST SCH ×4 (05:54→21:14)
[2019-08-18] MEDS: INSULIN LISPRO 100 UNITS/ML SUBCUT SCH ×4 (07:20→21:00)
[2019-08-18 07:32] LABS: BASOPHILS % 0.7 % (0.0-2.0); EOSINOPHILS % 5.2 % (0.0-5.0); HEMATOCRIT. 31.4 % (36.0-48.0); HEMOGLOBIN. 10.2 g/dL (12.0-16.0); LYMPHOCYTES % 8.1 % (20.0-50.0); MEAN CORPUSCULAR HEMOGLOBIN 32.3 pg (28.0-32.0); MONOCYTES % 13.5 % (2.0-8.0); NEUTROPHILS % 72.5 % (40.0-76.0); PLATELET 85 x1000/uL (130-400); RED BLOOD CELL COUNT 3.14 mill/uL (4.2-5.4)
[2019-08-18 07:46] LABS: INR 1.2; PROTHROMBIN TIME 12.2 sec (9.6-11.0)
[2019-08-18] MEDS: ASPIRIN 81MG TABLET PO SCH ×2 (09:00→10:39)
[2019-08-18] MEDS: METOPROLOL TARTRATE 25MG TABLET PO SCH ×3 (09:00→22:39)
[2019-08-18] MEDS: DOCUSATE SODIUM 100MG CAPSULE PO SCH ×3 (09:00→17:00)
[2019-08-18] MEDS: FAMOTIDINE 20MG TABLET PO SCH ×2 (10:30→10:39)
[2019-08-18] MEDS: HEPARIN 5000 UNITS/ML VIAL SUBCUT SCH ×2 (13:44→22:40)
[2019-08-18] MEDS ORDERED: BISACODYL 10MG SUPP PR NR (15:45)
[2019-08-18] MEDS ORDERED: SORBITOL 70% SOLN 30ML PO NR (16:00)
[2019-08-18] MEDS: CEFTRIAXONE 2 G in DEXTROSE 5% WATER 50 ML IV SCH (16:11)
[2019-08-18] MEDS ORDERED: WARFARIN SODIUM 3MG TABLET PO NR (18:00)
[2019-08-18] MEDS: BISACODYL 5MG TABLET PO PRN (19:47)
[2019-08-19] VITALS (11 sets, daily range): BP systolic 88–132; BP diastolic 34–93
[2019-08-19] MEDS: IPRATROPIUM/ALBUTEROL 0.5-3(2.5)MG/3ML NEB HHN SCH ×3 (00:46→09:27)
[2019-08-19] MEDS: OXYCODONE HCL/ACETAMINOPHEN 5/325MG TABLET PO PRN ×2 (01:58→08:49)
[2019-08-19] MEDS: BLOOD SUGAR DIAGNOSTIC STRIP TEST SCH ×2 (06:11→11:50)
[2019-08-19] MEDS: HEPARIN 5000 UNITS/ML VIAL SUBCUT SCH (06:32)
[2019-08-19] MEDS: SODIUM CHLORIDE 0.9% INJ 3ML FLUSH IVF SCH (06:32)
[2019-08-19] MEDS: INSULIN LISPRO 100 UNITS/ML SUBCUT SCH ×2 (07:20→12:20)
[2019-08-19 07:51] LABS: INR 1.2; PROTHROMBIN TIME 12.4 sec (9.6-11.0)
[2019-08-19] MEDS: ASPIRIN 81MG TABLET PO SCH (08:50)
[2019-08-19] MEDS: DOCUSATE SODIUM 100MG CAPSULE PO SCH (08:50)
[2019-08-19] MEDS: METOPROLOL TARTRATE 25MG TABLET PO SCH (08:50)
[2019-08-19] MEDS ORDERED: SODIUM CHLORIDE 0.9% 500 ML IV ONE (10:00)
[2019-08-19 10:05] LABS: HEMATOCRIT. 30.8 % (36.0-48.0); HEMOGLOBIN. 9.8 g/dL (12.0-16.0); MEAN CORPUSCULAR HEMOGLOBIN 32.4 pg (28.0-32.0); MEAN CORPUSCULAR VOLUME 102.4 fL (81.0-99.0); MEAN PLATELET VOLUME 10.4 fl (7.4-10.4); PLATELET 128 x1000/uL (130-400); RED BLOOD CELL COUNT 3.01 mill/uL (4.2-5.4); RED CELL DISTRIBUTION WIDTH 19.3 % (11.6-14.6)
[2019-08-19 11:58] LABS: PLATELET ESTIMATE NORMAL
[2019-08-19] MEDS: FAMOTIDINE 20MG TABLET PO SCH (12:55)
[2019-08-19] MEDS ORDERED: WARFARIN SODIUM 3MG TABLET PO SCH (18:00)
== END 2019-08-19 13:30 | DRG 219 ==
LOC: ER 20:08 → 5EST 21:42 → EDBEDREQSVC 21:44 → EDBEDREQ 21:44 → EDBEDREQTM 21:44 → ENRESERV 23:28 → CANBEDREQ 08-07 03:31 → CVICU 08-14 07:25 → 3WST 08-16 17:10
PROVIDERS: ADMIT Internal Medicine; ATTEND Internal Medicine
PROC: 30233N1 Transfusion of Nonautologous Red Blood Cells into Peripheral Vein, Percutaneous Approach (ICD-10-PCS; 2019-08-13)
PROC: 5A1221Z Performance of Cardiac Output, Continuous (ICD-10-PCS; principal; 2019-08-14)
PROC: 02RG0JZ Replacement of Mitral Valve with Synthetic Substitute, Open Approach (ICD-10-PCS; 2019-08-14)
PROC: 0JB60ZZ Excision of Chest Subcutaneous Tissue and Fascia, Open Approach (ICD-10-PCS; 2019-08-14)
PROC: B24BZZ4 Ultrasonography of Heart with Aorta, Transesophageal (ICD-10-PCS; 2019-08-14)
PROC: 5A1D70Z Performance of Urinary Filtration, Intermittent, Less than 6 Hours Per Day (ICD-10-PCS; 2019-08-17)
PROC: 5A1D70Z Performance of Urinary Filtration, Intermittent, Less than 6 Hours Per Day (ICD-10-PCS; 2019-08-19)
DX: T82.6XXA Infection and inflammatory reaction due to cardiac valve prosthesis, initial encounter (principal); N18.6 End stage renal disease; J96.00 Acute respiratory failure, unspecified whether with hypoxia or hypercapnia; D68.9 Coagulation defect, unspecified; I13.11 Hypertensive heart and chronic kidney disease without heart failure, with stage 5 chronic kidney disease, or end stage renal disease; I38 Endocarditis, valve unspecified; Y83.8 Other surgical procedures as the cause of abnormal reaction of the patient, or of later complication, without mention of misadventure at the time of the procedure; Y92.89 Other specified places as the place of occurrence of the external cause; E87.5 Hyperkalemia; E78.5 Hyperlipidemia, unspecified; I25.10 Atherosclerotic heart disease of native coronary artery without angina pectoris; R74.0 Nonspecific elevation of levels of transaminase and lactic acid dehydrogenase [LDH]; D69.6 Thrombocytopenia, unspecified; I95.9 Hypotension, unspecified; I27.20 Pulmonary hypertension, unspecified; K59.00 Constipation, unspecified; E80.6 Other disorders of bilirubin metabolism; I48.91 Unspecified atrial fibrillation; Z86.73 Personal history of transient ischemic attack (TIA), and cerebral infarction without residual deficits; Z87.891 Personal history of nicotine dependence; Z95.1 Presence of aortocoronary bypass graft; Z95.2 Presence of prosthetic heart valve; Z95.5 Presence of coronary angioplasty implant and graft; Z99.2 Dependence on renal dialysis; Z91.15 Patient's noncompliance with renal dialysis; Z86.79 Personal history of other diseases of the circulatory system
CPT/HCPCS: 36415; 36600; 71045; 75571; 80048; 80061; 80202; 82375; 82550; 82553; 82805; 82962; 83036; 83735; 83880; 84100; 84132; 84439; 84443; 84484; 84703; 85014; 85018; 85049; 85384; 85520; 85651; 86140; 86611; 86622; 86705; 86709; 86803; 86850; 86900; 86920; 87070; 87075; 87340; 87389; 88305; 88311; 88312; 93005; 93306; 93880; 94002; 94640; 96365; 96375; 97116; 97163; 97166; 99291; C1725; C1751; J0610; J0696; J0885; J1160; J1200; J1265; J1580; J1644; J1815; J1885; J2250; J2270; J2370; J2405; J2597; J2704; J2710; J2720; J3010; J3370; J3475; J3490; J7030; J7040; J7042; J7060; J7611; J7620; L3908; P9016; P9047; Q9957; Q9967; A4315

== ENCOUNTER 2019-08-19 13:50 | Inpatient (IN) | payer MEDICARE, MEDICAID ==
[~2019-08-19] VITALS: Ht 165.1 cm; Wt 56.7 kg
[2019-08-19 14:12] VITALS: BP 105/80
[2019-08-19] MEDS ORDERED: CLONIDINE 0.1MG TABLET PO PRN (14:45)
[2019-08-19] MEDS ORDERED: IPRATROPIUM/ALBUTEROL 0.5-3(2.5)MG/3ML NEB HHN PRN (14:45)
[2019-08-19] MEDS ORDERED: OXYCODONE HCL/ACETAMINOPHEN 5/325MG TABLET PO PRN (14:45)
[2019-08-19] MEDS ORDERED: GUAIFENESIN 200MG/10ML SUGAR FREE UDC PO PRN (14:45)
[2019-08-19] MEDS ORDERED: MAGNESIUM/ALUMINUM HYDROXIDE/SIMETHICONE 30ML UDC PO PRN (14:45)
[2019-08-19] MEDS ORDERED: ONDANSETRON HCL 4MG TABLET PO PRN (14:45)
[2019-08-19] MEDS ORDERED: HYDRALAZINE 20MG/ML VIAL IV ONE (14:45)
[2019-08-19] MEDS ORDERED: DEXTROSE 50% WATER 50ML SYRINGE IV PRN (14:45)
[2019-08-19] MEDS ORDERED: CEFTRIAXONE 2 G PREMIX 50 ML IV SCH (16:00)
[2019-08-19] MEDS ORDERED: HYDRALAZINE 10 MG in SODIUM CHLORIDE 0.9% 49.5 ML IV PRN (16:15)
[2019-08-19] MEDS: INSULIN LISPRO 100 UNITS/ML SUBCUT SCH ×2 (17:00→20:23)
[2019-08-19] MEDS: CEFTRIAXONE 2 G in DEXTROSE 5% WATER 50 ML IV SCH (17:05)
[2019-08-19] MEDS: BLOOD SUGAR DIAGNOSTIC STRIP TEST SCH ×2 (17:19→20:18)
[2019-08-19] MEDS: DOCUSATE SODIUM 100MG CAPSULE PO SCH (17:41)
[2019-08-19] MEDS: WARFARIN SODIUM 3MG TABLET PO SCH (18:06)
[2019-08-19 20:00] VITALS: BP 118/22
[2019-08-19] MEDS: METOPROLOL TARTRATE 25MG TABLET PO SCH (20:17)
[2019-08-19] MEDS: IBUPROFEN 600MG TABLET PO PRN (20:18)
[2019-08-19] MEDS: IPRATROPIUM/ALBUTEROL 0.5-3(2.5)MG/3ML NEB HHN SCH (20:50)
[2019-08-19] MEDS: SODIUM CHLORIDE 0.9% INJ 3ML FLUSH IVF SCH (22:47)
[2019-08-19] MEDS: HEPARIN 5000 UNITS/ML VIAL SUBCUT SCH (23:22)
[2019-08-20] MEDS: IPRATROPIUM/ALBUTEROL 0.5-3(2.5)MG/3ML NEB HHN SCH ×6 (00:40→19:45)
[2019-08-20] MEDS: OXYCODONE HCL/ACETAMINOPHEN 5/325MG TABLET PO PRN ×5 (05:03→22:28)
[2019-08-20] MEDS: HEPARIN 5000 UNITS/ML VIAL SUBCUT SCH ×3 (06:46→22:28)
[2019-08-20] MEDS: BLOOD SUGAR DIAGNOSTIC STRIP TEST SCH ×4 (06:46→21:00)
[2019-08-20] MEDS: SODIUM CHLORIDE 0.9% INJ 3ML FLUSH IVF SCH ×3 (06:46→22:29)
[2019-08-20] MEDS: INSULIN LISPRO 100 UNITS/ML SUBCUT SCH ×4 (06:47→21:00)
[2019-08-20 08:00] VITALS: BP 104/49
[2019-08-20] MEDS: METOPROLOL TARTRATE 25MG TABLET PO SCH ×2 (09:00→22:00)
[2019-08-20] MEDS: ASPIRIN 325MG TABLET PO SCH (09:17)
[2019-08-20] MEDS: FAMOTIDINE 20MG TABLET PO SCH (09:17)
[2019-08-20] MEDS: DOCUSATE SODIUM 100MG CAPSULE PO SCH ×2 (09:17→17:00)
[2019-08-20 11:12] LABS: HEMOGLOBIN. 10.3 g/dL (12.0-16.0); MEAN CORPUSCULAR HEMOGLOBIN 32.3 pg (28.0-32.0); MEAN CORPUSCULAR VOLUME 100.7 fL (81.0-99.0); PLATELET 128 x1000/uL (130-400); RED BLOOD CELL COUNT 3.18 mill/uL (4.2-5.4); RED CELL DISTRIBUTION WIDTH 19.5 % (11.6-14.6)
[2019-08-20] MEDS ORDERED: VANCOMYCIN 750 MG PREMIX 150 ML IV SCH (14:00)
[2019-08-20 14:04] LABS: PLATELET ESTIMATE NORMAL
[2019-08-20] MEDS: CEFTRIAXONE 2 G in DEXTROSE 5% WATER 50 ML IV SCH (17:05)
[2019-08-20] MEDS: WARFARIN SODIUM 3MG TABLET PO SCH (17:05)
[2019-08-20] MEDS: IBUPROFEN 600MG TABLET PO PRN (19:27)
[2019-08-20 20:00] VITALS: BP 109/52
[2019-08-20] MEDS: DIPHENHYDRAMINE 25MG CAPSULE PO PRN (23:22)
[2019-08-21] MEDS: IPRATROPIUM/ALBUTEROL 0.5-3(2.5)MG/3ML NEB HHN SCH ×6 (01:57→20:53)
[2019-08-21] MEDS: IBUPROFEN 600MG TABLET PO PRN ×2 (03:18→22:40)
[2019-08-21] MEDS: HEPARIN 5000 UNITS/ML VIAL SUBCUT SCH ×3 (06:24→21:54)
[2019-08-21] MEDS: BLOOD SUGAR DIAGNOSTIC STRIP TEST SCH ×4 (06:24→21:52)
[2019-08-21] MEDS: SODIUM CHLORIDE 0.9% INJ 3ML FLUSH IVF SCH ×3 (06:24→21:52)
[2019-08-21] MEDS: OXYCODONE HCL/ACETAMINOPHEN 5/325MG TABLET PO PRN ×4 (06:33→16:00)
[2019-08-21] MEDS: INSULIN LISPRO 100 UNITS/ML SUBCUT SCH ×4 (07:00→21:00)
[2019-08-21 08:05] VITALS: BP 97/45
[2019-08-21] MEDS: BISACODYL 5MG TABLET PO PRN (08:32)
[2019-08-21] MEDS: ASPIRIN 325MG TABLET PO SCH (08:32)
[2019-08-21] MEDS: FAMOTIDINE 20MG TABLET PO SCH (08:32)
[2019-08-21] MEDS: DOCUSATE SODIUM 100MG CAPSULE PO SCH ×4 (08:32→16:12)
[2019-08-21] MEDS: METOPROLOL TARTRATE 25MG TABLET PO SCH ×2 (08:41→21:00)
[2019-08-21 11:57] LABS: INR 1.4
[2019-08-21] MEDS ORDERED: NA PHOS,M-B/NA PHOS,DI-BA ENEMA 118ML PR PRN (14:15)
[2019-08-21] MEDS ORDERED: BISACODYL 5MG TABLET PO PRN (14:15)
[2019-08-21] MEDS: CEFTRIAXONE 2 G in DEXTROSE 5% WATER 50 ML IV SCH ×2 (16:00→21:52)
[2019-08-21] MEDS: WARFARIN SODIUM 3MG TABLET PO SCH (18:10)
[2019-08-21 20:00] VITALS: BP 91/33
[2019-08-21] MEDS ORDERED: WARFARIN SODIUM 2MG TABLET PO SCH (22:00)
[2019-08-22] MEDS: IPRATROPIUM/ALBUTEROL 0.5-3(2.5)MG/3ML NEB HHN SCH ×6 (01:03→22:05)
[2019-08-22] MEDS: BLOOD SUGAR DIAGNOSTIC STRIP TEST SCH ×4 (06:02→21:00)
[2019-08-22] MEDS: SODIUM CHLORIDE 0.9% INJ 3ML FLUSH IVF SCH ×3 (06:02→22:21)
[2019-08-22] MEDS: HEPARIN 5000 UNITS/ML VIAL SUBCUT SCH ×3 (06:02→22:22)
[2019-08-22 07:27] LABS: INR 1.5; PROTHROMBIN TIME 14.7 sec (9.6-11.0)
[2019-08-22] MEDS: INSULIN LISPRO 100 UNITS/ML SUBCUT SCH ×4 (07:27→21:00)
[2019-08-22 07:36] LABS: HEMATOCRIT. 27.3 % (36.0-48.0); HEMOGLOBIN. 8.9 g/dL (12.0-16.0); MEAN CORPUSCULAR HEMOGLOBIN 32.6 pg (28.0-32.0); MEAN CORPUSCULAR VOLUME 99.8 fL (81.0-99.0); MEAN PLATELET VOLUME 9.4 fl (7.4-10.4); PLATELET 163 x1000/uL (130-400); RED BLOOD CELL COUNT 2.73 mill/uL (4.2-5.4); RED CELL DISTRIBUTION WIDTH 18.6 % (11.6-14.6)
[2019-08-22] MEDS: OXYCODONE HCL/ACETAMINOPHEN 5/325MG TABLET PO PRN ×3 (07:50→17:08)
[2019-08-22 08:13] VITALS: BP 142/73
[2019-08-22] MEDS: ASPIRIN 325MG TABLET PO SCH (09:00)
[2019-08-22] MEDS: METOPROLOL TARTRATE 25MG TABLET PO SCH ×2 (09:00→21:00)
[2019-08-22] MEDS: DOCUSATE SODIUM 100MG CAPSULE PO SCH ×4 (09:00→17:41)
[2019-08-22] MEDS: FAMOTIDINE 20MG TABLET PO SCH (10:17)
[2019-08-22 13:28] LABS: PLATELET ESTIMATE NORMAL
[2019-08-22] MEDS: CEFTRIAXONE 2 G in DEXTROSE 5% WATER 50 ML IV SCH (17:41)
[2019-08-22] MEDS ORDERED: WARFARIN SODIUM 5MG TABLET PO SCH (18:00)
[2019-08-22] MEDS ORDERED: WARFARIN SODIUM 2MG TABLET PO NR (18:00)
[2019-08-22 20:00] VITALS: BP 105/65
[2019-08-22] MEDS: EPOETIN ALFA 10000UNITS/ML VIAL SUBCUT SCH (22:21)
[2019-08-22] MEDS: IBUPROFEN 600MG TABLET PO PRN (23:56)
[2019-08-23] MEDS: IPRATROPIUM/ALBUTEROL 0.5-3(2.5)MG/3ML NEB HHN SCH ×5 (00:47→21:44)
[2019-08-23] MEDS: SODIUM CHLORIDE 0.9% INJ 3ML FLUSH IVF SCH ×3 (06:15→21:31)
[2019-08-23] MEDS: BLOOD SUGAR DIAGNOSTIC STRIP TEST SCH ×4 (06:15→21:30)
[2019-08-23] MEDS: INSULIN LISPRO 100 UNITS/ML SUBCUT SCH ×4 (06:16→21:00)
[2019-08-23] MEDS: HEPARIN 5000 UNITS/ML VIAL SUBCUT SCH (06:16)
[2019-08-23 08:00] VITALS: BP 124/65
[2019-08-23] MEDS: FAMOTIDINE 20MG TABLET PO SCH (08:42)
[2019-08-23] MEDS: OXYCODONE HCL/ACETAMINOPHEN 5/325MG TABLET PO PRN ×3 (08:42→16:25)
[2019-08-23] MEDS: DOCUSATE SODIUM 100MG CAPSULE PO SCH ×3 (08:42→16:25)
[2019-08-23] MEDS: METOPROLOL TARTRATE 25MG TABLET PO SCH ×2 (08:45→21:00)
[2019-08-23] MEDS: ASPIRIN 325MG TABLET PO SCH (10:43)
[2019-08-23 12:13] LABS: HEMATOCRIT. 26.9 % (36.0-48.0); HEMOGLOBIN. 9.1 g/dL (12.0-16.0); MEAN CORPUSCULAR HEMOGLOBIN 33.9 pg (28.0-32.0); MEAN CORPUSCULAR VOLUME 99.9 fL (81.0-99.0); PLATELET 204 x1000/uL (130-400); RED BLOOD CELL COUNT 2.69 mill/uL (4.2-5.4)
[2019-08-23] MEDS: CEFTRIAXONE 2 G in DEXTROSE 5% WATER 50 ML IV SCH (16:26)
[2019-08-23] MEDS: WARFARIN SODIUM 3MG TABLET PO SCH (17:22)
[2019-08-23 17:23] LABS: PROTHROMBIN TIME 19.9 sec (9.6-11.0)
[2019-08-23 18:17] LABS: PLATELET ESTIMATE NORMAL
[2019-08-23 20:00] VITALS: BP 106/33
[2019-08-23] MEDS ORDERED: VANCOMYCIN 1 G PREMIX 200 ML IV NR (21:00)
[2019-08-23] MEDS: ALPRAZOLAM 0.25 MG TABLET PO SCH (22:01)
[2019-08-24] MEDS: IPRATROPIUM/ALBUTEROL 0.5-3(2.5)MG/3ML NEB HHN SCH ×6 (01:06→21:45)
[2019-08-24] MEDS: IBUPROFEN 600MG TABLET PO PRN ×4 (02:34→23:44)
[2019-08-24] MEDS: SODIUM CHLORIDE 0.9% INJ 3ML FLUSH IVF SCH ×3 (06:00→22:00)
[2019-08-24] MEDS: BLOOD SUGAR DIAGNOSTIC STRIP TEST SCH ×4 (06:10→21:06)
[2019-08-24] MEDS: ALPRAZOLAM 0.25 MG TABLET PO SCH ×3 (06:10→23:00)
[2019-08-24] MEDS: INSULIN LISPRO 100 UNITS/ML SUBCUT SCH ×4 (06:10→21:00)
[2019-08-24] MEDS: OXYCODONE HCL/ACETAMINOPHEN 5/325MG TABLET PO PRN ×3 (06:12→22:45)
[2019-08-24 08:00] VITALS: BP 115/61
[2019-08-24] MEDS: DOCUSATE SODIUM 100MG CAPSULE PO SCH ×2 (08:54→16:38)
[2019-08-24] MEDS: FAMOTIDINE 20MG TABLET PO SCH (08:54)
[2019-08-24] MEDS: METOPROLOL TARTRATE 25MG TABLET PO SCH ×2 (08:54→21:00)
[2019-08-24 09:27] LABS: BASOPHILS % 2.8 % (0.0-2.0); EOSINOPHILS % 4.2 % (0.0-5.0); HEMOGLOBIN. 8.4 g/dL (12.0-16.0); LYMPHOCYTES % 9.2 % (20.0-50.0); MEAN CORPUSCULAR HEMOGLOBIN 32.2 pg (28.0-32.0); MEAN CORPUSCULAR VOLUME 100.2 fL (81.0-99.0); MEAN PLATELET VOLUME 9.5 fl (7.4-10.4); NEUTROPHILS % 70.8 % (40.0-76.0); PLATELET 226 x1000/uL (130-400); RED CELL DISTRIBUTION WIDTH 18.5 % (11.6-14.6)
[2019-08-24 09:30] LABS: INR 2.5; PROTHROMBIN TIME 24.3 sec (9.6-11.0)
[2019-08-24] MEDS: CEFTRIAXONE 2 G in DEXTROSE 5% WATER 50 ML IV SCH (14:47)
[2019-08-24] MEDS: LIDOCAINE 5% PATCH TOP SCH (16:38)
[2019-08-24 20:00] VITALS: BP 82/59
[2019-08-24] MEDS: BISACODYL 5MG TABLET PO PRN (21:02)
[2019-08-24] MEDS: EPOETIN ALFA 10000UNITS/ML VIAL SUBCUT SCH (21:06)
[2019-08-25] MEDS: DIPHENHYDRAMINE 25MG CAPSULE PO PRN (00:40)
[2019-08-25] MEDS: ACETAMINOPHEN 325MG TABLET PO PRN ×3 (00:40→23:24)
[2019-08-25] MEDS: IPRATROPIUM/ALBUTEROL 0.5-3(2.5)MG/3ML NEB HHN SCH ×6 (00:43→20:22)
[2019-08-25] MEDS: ALPRAZOLAM 0.25 MG TABLET PO SCH ×3 (05:29→22:00)
[2019-08-25] MEDS: SODIUM CHLORIDE 0.9% INJ 3ML FLUSH IVF SCH ×3 (05:40→22:08)
[2019-08-25] MEDS: BLOOD SUGAR DIAGNOSTIC STRIP TEST SCH ×4 (06:22→21:00)
[2019-08-25] MEDS: INSULIN LISPRO 100 UNITS/ML SUBCUT SCH ×4 (06:23→21:00)
[2019-08-25] MEDS: OXYCODONE HCL/ACETAMINOPHEN 5/325MG TABLET PO PRN ×4 (07:06→22:08)
[2019-08-25 08:04] VITALS: BP 106/56
[2019-08-25] MEDS: FAMOTIDINE 20MG TABLET PO SCH (08:17)
[2019-08-25] MEDS: LIDOCAINE 5% PATCH TOP SCH (08:17)
[2019-08-25] MEDS: DOCUSATE SODIUM 100MG CAPSULE PO SCH ×2 (08:17→16:00)
[2019-08-25] MEDS: METOPROLOL TARTRATE 25MG TABLET PO SCH ×2 (08:27→21:00)
[2019-08-25] MEDS: IBUPROFEN 600MG TABLET PO PRN (10:02)
[2019-08-25 11:40] LABS: BASOPHILS % 2.3 % (0.0-2.0); EOSINOPHILS % 4.2 % (0.0-5.0); HEMATOCRIT. 26.1 % (36.0-48.0); HEMOGLOBIN. 8.5 g/dL (12.0-16.0); LYMPHOCYTES % 9.4 % (20.0-50.0); MEAN CORPUSCULAR HEMOGLOBIN 31.8 pg (28.0-32.0); MEAN PLATELET VOLUME 9.2 fl (7.4-10.4); MONOCYTES % 12.2 % (2.0-8.0); NEUTROPHILS % 71.9 % (40.0-76.0); PLATELET 250 x1000/uL (130-400); RED BLOOD CELL COUNT 2.67 mill/uL (4.2-5.4); RED CELL DISTRIBUTION WIDTH 17.9 % (11.6-14.6)
[2019-08-25 11:47] LABS: PROTHROMBIN TIME 20.1 sec (9.6-11.0)
[2019-08-25] MEDS: CEFTRIAXONE 2 G in DEXTROSE 5% WATER 50 ML IV SCH (15:56)
[2019-08-25] MEDS ORDERED: WARFARIN SODIUM 2.5MG TABLET PO SCH (18:00)
[2019-08-25 20:00] VITALS: BP 114/56
[2019-08-26] MEDS: IPRATROPIUM/ALBUTEROL 0.5-3(2.5)MG/3ML NEB HHN SCH ×6 (00:08→21:10)
[2019-08-26] MEDS: ALPRAZOLAM 0.25 MG TABLET PO SCH ×3 (05:55→21:32)
[2019-08-26] MEDS: INSULIN LISPRO 100 UNITS/ML SUBCUT SCH ×4 (05:56→21:00)
[2019-08-26] MEDS: BLOOD SUGAR DIAGNOSTIC STRIP TEST SCH ×4 (05:56→21:13)
[2019-08-26] MEDS: SODIUM CHLORIDE 0.9% INJ 3ML FLUSH IVF SCH ×3 (05:56→21:13)
[2019-08-26 06:52] LABS: INR 1.7; PROTHROMBIN TIME 17.3 sec (9.6-11.0)
[2019-08-26 08:00] VITALS: BP 110/49
[2019-08-26] MEDS: METOPROLOL TARTRATE 25MG TABLET PO SCH ×2 (08:31→21:00)
[2019-08-26] MEDS: FAMOTIDINE 20MG TABLET PO SCH (08:31)
[2019-08-26] MEDS: LIDOCAINE 5% PATCH TOP SCH (08:31)
[2019-08-26] MEDS: DOCUSATE SODIUM 100MG CAPSULE PO SCH ×2 (08:32→16:16)
[2019-08-26] MEDS: OXYCODONE HCL/ACETAMINOPHEN 5/325MG TABLET PO PRN ×3 (08:33→17:30)
[2019-08-26] MEDS: CEFTRIAXONE 2 G in DEXTROSE 5% WATER 50 ML IV SCH (16:00)
[2019-08-26] MEDS: LACTULOSE 20G/30ML UDC PO SCH ×2 (16:16→21:10)
[2019-08-26] MEDS ORDERED: WARFARIN SODIUM 4MG TABLET PO NR (18:00)
[2019-08-26 20:00] VITALS: BP 110/67
[2019-08-27] MEDS: ACETAMINOPHEN 325MG TABLET PO PRN (01:14)
[2019-08-27] MEDS: IPRATROPIUM/ALBUTEROL 0.5-3(2.5)MG/3ML NEB HHN SCH ×7 (01:20→23:51)
[2019-08-27] MEDS: OXYCODONE HCL/ACETAMINOPHEN 5/325MG TABLET PO PRN ×3 (05:53→14:55)
[2019-08-27] MEDS: BLOOD SUGAR DIAGNOSTIC STRIP TEST SCH ×4 (05:57→21:00)
[2019-08-27] MEDS: ALPRAZOLAM 0.25 MG TABLET PO SCH ×3 (05:57→21:58)
[2019-08-27] MEDS: INSULIN LISPRO 100 UNITS/ML SUBCUT SCH ×4 (06:45→21:00)
[2019-08-27 06:58] LABS: EOSINOPHILS % 3.8 % (0.0-5.0); HEMATOCRIT. 25.7 % (36.0-48.0); HEMOGLOBIN. 8.3 g/dL (12.0-16.0); INR 1.9; LYMPHOCYTES % 7.2 % (20.0-50.0); MEAN CORPUSCULAR HEMOGLOBIN 32.2 pg (28.0-32.0); MEAN PLATELET VOLUME 9.2 fl (7.4-10.4); MONOCYTES % 8.3 % (2.0-8.0); NEUTROPHILS % 80.7 % (40.0-76.0); PLATELET 169 x1000/uL (130-400); PROTHROMBIN TIME 18.7 sec (9.6-11.0); RED BLOOD CELL COUNT 2.58 mill/uL (4.2-5.4); RED CELL DISTRIBUTION WIDTH 18.1 % (11.6-14.6)
[2019-08-27 07:30] VITALS: BP 111/73
[2019-08-27] MEDS ORDERED: LIDOCAINE HCL 1% 20ML VIAL (Pyxis) INJ ONE (07:52)
[2019-08-27] MEDS ORDERED: SODIUM BICARBONATE 4% (2.4MEQ) 5ML VIAL IV ONE (07:52)
[2019-08-27 07:54] VITALS: BP 111/73
[2019-08-27] MEDS: METOPROLOL TARTRATE 25MG TABLET PO SCH ×2 (09:00→21:00)
[2019-08-27] MEDS: FAMOTIDINE 20MG TABLET PO SCH (09:20)
[2019-08-27] MEDS: DOCUSATE SODIUM 100MG CAPSULE PO SCH ×2 (09:21→16:29)
[2019-08-27] MEDS: LIDOCAINE 5% PATCH TOP SCH (09:22)
[2019-08-27] MEDS: IBUPROFEN 600MG TABLET PO PRN (12:34)
[2019-08-27] MEDS: CEFTRIAXONE 2 G in DEXTROSE 5% WATER 50 ML IV SCH ×3 (16:00→21:58)
[2019-08-27] MEDS ORDERED: WARFARIN SODIUM 4MG TABLET PO SCH (18:00)
[2019-08-27 20:00] VITALS: BP 107/50
[2019-08-27] MEDS ORDERED: VANCOMYCIN 1 G PREMIX 200 ML IV NR (21:00)
[2019-08-27] MEDS: EPOETIN ALFA 10000UNITS/ML VIAL SUBCUT SCH (22:22)
[2019-08-28] MEDS: IPRATROPIUM/ALBUTEROL 0.5-3(2.5)MG/3ML NEB HHN SCH ×5 (04:02→19:59)
[2019-08-28] MEDS: ALPRAZOLAM 0.25 MG TABLET PO SCH ×2 (06:11→13:08)
[2019-08-28] MEDS: BLOOD SUGAR DIAGNOSTIC STRIP TEST SCH ×3 (06:11→17:38)
[2019-08-28 07:03] LABS: BASOPHILS % 0.4 % (0.0-2.0); EOSINOPHILS % 4.1 % (0.0-5.0); HEMOGLOBIN. 8.2 g/dL (12.0-16.0); LYMPHOCYTES % 9.4 % (20.0-50.0); MEAN CORPUSCULAR HEMOGLOBIN 33.2 pg (28.0-32.0); MEAN CORPUSCULAR VOLUME 101.7 fL (81.0-99.0); MEAN PLATELET VOLUME 10.1 fl (7.4-10.4); MONOCYTES % 9.7 % (2.0-8.0); NEUTROPHILS % 76.4 % (40.0-76.0); PLATELET 234 x1000/uL (130-400); RED BLOOD CELL COUNT 2.46 mill/uL (4.2-5.4); RED CELL DISTRIBUTION WIDTH 17.9 % (11.6-14.6)
[2019-08-28 07:04] LABS: INR 2.3; PROTHROMBIN TIME 22.3 sec (9.6-11.0)
[2019-08-28 07:54] VITALS: BP 117/66
[2019-08-28] MEDS: FAMOTIDINE 20MG TABLET PO SCH (08:19)
[2019-08-28] MEDS: OXYCODONE HCL/ACETAMINOPHEN 5/325MG TABLET PO PRN ×2 (08:19→14:12)
[2019-08-28] MEDS: LIDOCAINE 5% PATCH TOP SCH (08:19)
[2019-08-28] MEDS: DOCUSATE SODIUM 100MG CAPSULE PO SCH ×2 (08:19→16:32)
[2019-08-28] MEDS: METOPROLOL TARTRATE 25MG TABLET PO SCH (08:20)
[2019-08-28] MEDS: INSULIN LISPRO 100 UNITS/ML SUBCUT SCH ×3 (08:20→17:00)
[2019-08-28] MEDS: IBUPROFEN 600MG TABLET PO PRN (10:23)
[2019-08-28 11:45] VITALS: BP 117/66
[2019-08-28] MEDS ORDERED: ATOR80TA PO (15:10)
[2019-08-28] MEDS ORDERED: AMI2 PO (15:10)
[2019-08-28] MEDS ORDERED: GABA-531 PO (15:10)
[2019-08-28] MEDS ORDERED: OXYC15TA88 PO (15:12)
[2019-08-28] MEDS ORDERED: ONDA8TAB6 PO (15:12)
[2019-08-28] MEDS ORDERED: METO25TA6 PO (15:12)
[2019-08-28] MEDS ORDERED: QUET25TA PO (15:13)
[2019-08-28] MEDS ORDERED: PANT40TA4 PO (15:14)
[2019-08-28] MEDS ORDERED: WARF1TAB85 PO (15:16)
[2019-08-28] MEDS ORDERED: SEVE800T25 PO (15:16)
[2019-08-28] MEDS ORDERED: WARF2.5T83 PO (15:16)
[2019-08-28] MEDS ORDERED: WARFARIN SODIUM 4MG TABLET PO SCH (18:00)
[2019-08-28 19:46] VITALS: BP 144/80
== END 2019-08-28 20:10 | disposition home health service (06) | DRG 189 ==
PROVIDERS: ADMIT Psychiatry & Neurology Neurology; ATTEND Internal Medicine
PROC: 5A1D70Z Performance of Urinary Filtration, Intermittent, Less than 6 Hours Per Day (ICD-10-PCS; principal; 2019-08-20)
PROC: 5A1D70Z Performance of Urinary Filtration, Intermittent, Less than 6 Hours Per Day (ICD-10-PCS; 2019-08-22)
PROC: 5A1D70Z Performance of Urinary Filtration, Intermittent, Less than 6 Hours Per Day (ICD-10-PCS; 2019-08-24)
PROC: 5A1D70Z Performance of Urinary Filtration, Intermittent, Less than 6 Hours Per Day (ICD-10-PCS; 2019-08-27)
PROC: B5181ZA Fluoroscopy of Superior Vena Cava using Low Osmolar Contrast, Guidance (ICD-10-PCS; 2019-08-27)
PROC: 02HV33Z Insertion of Infusion Device into Superior Vena Cava, Percutaneous Approach (ICD-10-PCS; 2019-08-27)
PROC: B548ZZA Ultrasonography of Superior Vena Cava, Guidance (ICD-10-PCS; 2019-08-27)
DX: J96.01 Acute respiratory failure with hypoxia (principal); N18.6 End stage renal disease; R17 Unspecified jaundice; D68.9 Coagulation defect, unspecified; I12.0 Hypertensive chronic kidney disease with stage 5 chronic kidney disease or end stage renal disease; T82.6XXA Infection and inflammatory reaction due to cardiac valve prosthesis, initial encounter; E87.70 Fluid overload, unspecified; E87.5 Hyperkalemia; I27.20 Pulmonary hypertension, unspecified; R74.0 Nonspecific elevation of levels of transaminase and lactic acid dehydrogenase [LDH]; D64.9 Anemia, unspecified; D69.6 Thrombocytopenia, unspecified; I25.10 Atherosclerotic heart disease of native coronary artery without angina pectoris; K59.00 Constipation, unspecified; I48.91 Unspecified atrial fibrillation; Z99.2 Dependence on renal dialysis; Z95.5 Presence of coronary angioplasty implant and graft; Z95.1 Presence of aortocoronary bypass graft; Z99.81 Dependence on supplemental oxygen; Z95.2 Presence of prosthetic heart valve; Z86.73 Personal history of transient ischemic attack (TIA), and cerebral infarction without residual deficits
CPT/HCPCS: 36415; 36573; 71045; 76937; 80048; 80202; 82270; 82962; 92523; 93970; 94618; 94640; 97110; 97112; 97116; 97162; 97167; 97530; 97535; C1725; C1893; J0696; J0885; J1644; J1815; J3370; J3490; J7060; J7620; Q0163

== ENCOUNTER 2019-10-04 21:53 | Emergency (ER) | payer MEDICARE, MEDICAID ==
[~2019-10-04] VITALS: Ht 160 cm; Wt 66.0 kg
[~2019-10-04 21:53] MED LIST: AMI2 PO; ATOR80TA PO; GABA-531 PO; METO25TA6 PO; ONDA8TAB6 PO; PANT40TA4 PO; QUET25TA PO; SEVE800T25 PO
[2019-10-04] MEDS ORDERED: SODIUM CHLORIDE 0.9% 250 ML IV ONE (22:01)
[2019-10-04 23:50] LABS: BASOPHILS % 0.7 % (0.0-2.0); EOSINOPHILS % 0.5 % (0.0-5.0); HEMATOCRIT. 47.3 % (36.0-48.0); HEMOGLOBIN. 14.4 g/dL (12.0-16.0); LYMPHOCYTES % 18.5 % (20.0-50.0); MEAN CORPUSCULAR HEMOGLOBIN 31.5 pg (28.0-32.0); MEAN CORPUSCULAR VOLUME 103.3 fL (81.0-99.0); MEAN PLATELET VOLUME 10.4 fl (7.4-10.4); MONOCYTES % 7.6 % (2.0-8.0); NEUTROPHILS % 72.7 % (40.0-76.0); PLATELET 180 x1000/uL (130-400); RED BLOOD CELL COUNT 4.58 mill/uL (4.2-5.4); RED CELL DISTRIBUTION WIDTH 20.5 % (11.6-14.6)
[2019-10-04 23:56] LABS: CHLORIDE 95 mEq/L (98-107)
[2019-10-05 00:01] LABS: PARTIAL THROMBOPLASTIN TIME 44.3 sec (23.4-31.0); PROTHROMBIN TIME 67.9 sec (9.6-11.0)
[2019-10-05 00:03] LABS: ETHANOL BLOOD < 10 mg/dL
[2019-10-05 00:15] LABS: HCG SCREEN NEGATIVE
[2019-10-05] MEDS ORDERED: SODIUM CHLORIDE 0.9% 1,000 ML IV ONE (00:15)
[2019-10-05 00:28] LABS: INR 7.2
[2019-10-05] MEDS ORDERED: PHYTONADIONE 10 MG/10 ML ORALSYR PO NR (00:30)
[2019-10-05] MEDS ORDERED: ASPIRIN 81MG TABLET PO NR (01:15)
[2019-10-05] MEDS ORDERED: ONDANSETRON HCL 4MG/2ML INJ IV PRN (02:00)
[2019-10-05] MEDS ORDERED: ACETAMINOPHEN 325MG TABLET PO PRN (02:00)
[2019-10-05] MEDS ORDERED: CLONIDINE 0.1MG TABLET PO PRN (02:00)
[2019-10-05] MEDS ORDERED: HYDROCODONE/ACETAMINOPHEN 5/325MG TABLET PO PRN (02:00)
[2019-10-05] MEDS ORDERED: MORPHINE SULFATE 2 MG/ML CPJ (NOT FOR IM USE) IV PRN (02:00)
[2019-10-05] MEDS ORDERED: DOCUSATE SODIUM 100MG CAPSULE PO PRN (02:00)
[2019-10-05] MEDS ORDERED: MAGNESIUM/ALUMINUM HYDROXIDE/SIMETHICONE 30ML UDC PO PRN (02:00)
[2019-10-05] MEDS ORDERED: ETOMIDATE 2MG/ML 10ML VIAL IV ONE (07:15)
[2019-10-05] MEDS ORDERED: SUCCINYLCHOLINE CHLORIDE 200MG/10ML IV ONE (07:15)
[2019-10-05] MEDS ORDERED: DOPAMINE 800MG PREMIX (DOUBLE) 250 ML IV ONE (07:15)
[2019-10-05] MEDS ORDERED: EPINEPHRINE 0.1MG/ML (1:10,000) 10ML SYR ONE ×2 (07:19→07:32)
[2019-10-05] MEDS ORDERED: DEXTROSE 50% WATER 50ML SYRINGE IV ONE ×2 (07:26→07:45)
[2019-10-05 07:31] VITALS: BP 133/79
[2019-10-05] MEDS ORDERED: DOPAMINE 400MG/250ML PREMIX 250 ML IV ONE (07:38)
[2019-10-05] MEDS ORDERED: AMLODIPINE 10MG TABLET PO SCH (09:00)
[2019-10-06] MEDS ORDERED: ASPIRIN 81MG EC TABLET PO SCH (09:00)
== END 2019-10-05 09:20 | disposition expired ==
LOC: ER 21:53 → EDBEDREQ 22:26 → EDBEDREQSVC 22:26 → EDBEDREQTM 22:26 → EDBEDREQDT 10-05 06:26 → EDBEDREQTM 10-05 06:26 → EDBEDREQSVC 10-05 06:26 → CANBEDREQ 10-05 08:39 → ER 10-05 09:20
DX: I46.9 Cardiac arrest, cause unspecified (principal); I50.9 Heart failure, unspecified; N18.6 End stage renal disease; Z86.73 Personal history of transient ischemic attack (TIA), and cerebral infarction without residual deficits; Z95.1 Presence of aortocoronary bypass graft; Z79.01 Long term (current) use of anticoagulants; Z95.2 Presence of prosthetic heart valve; Z99.2 Dependence on renal dialysis; Z98.890 Other specified postprocedural states; Z79.899 Other long term (current) drug therapy
CPT/HCPCS: 36415; 71045; 80053; 80320; 83605; 83690; 83880; 84484; 84703; 85025; 85610; 85730; 87040; 93005; 94002; 94660; 99291; J7050; G0480